=== PATIENT | female | born 2000 | race Caucasian/White ===

== ENCOUNTER 2019-01-11 14:25 | Emergency (ER) | payer OTHER ==
[2019-01-11 17:30] LABS: ADD UMIC YES; UR ASCORBIC ACID NEGATIVE (NEGATIVE); UR BILIRUBIN (Dip) NEGATIVE (NEGATIVE); UR BLOOD (Dip) 2+ mg/dL (NEGATIVE); UR CLARITY CLEAR (CLEAR); UR COLOR COLORLESS (YELLOW); UR GLUCOSE (Dip) NEGATIVE (NEGATIVE); UR KETONES (Dip) NEGATIVE (NEGATIVE); UR LEUKOCYTE ESTERASE (Dip) NEGATIVE Leu/ul (NEGATIVE); UR NITRITE (Dip) NEGATIVE (NEGATIVE); UR RBC 2 /HPF (0-5); UR SPECIFIC GRAVITY (Dip) 1.004 (1.003-1.030); UR SQUAMOUS EPITHELIAL CELL FEW /HPF (FEW); UR TOTAL PROTEIN (Dip) NEGATIVE (NEGATIVE); UR UROBILINOGEN (Dip) NEGATIVE (NEGATIVE); UR WBC 1 /HPF (0-5)
[2019-01-11] MEDS: CEFTRIAXONE 250 MG INJ IM (18:52)
[2019-01-11] MEDS: AZITHROMYCIN 500 MG TAB PO (18:52)
[2019-01-11] MEDS: LIDOCAINE 1% (MPF) 5 ML VIAL INFIL (18:52)
== END 2019-01-11 19:06 | disposition home or self-care (01) ==
LOC: FTE 14:25
DX: N76.0 Acute vaginitis (principal); J45.909 Unspecified asthma, uncomplicated; Z87.891 Personal history of nicotine dependence
CPT/HCPCS: 81001; 81025; 87210; 87591; 96372; 99284-25

== ENCOUNTER 2019-02-09 22:14 | Emergency (ER) | payer SELFPAY | END 2019-02-10 00:19 | disposition left against medical advice (07) | LOC: FTE 22:14 | DX: Z53.21 Procedure and treatment not carried out due to patient leaving prior to being seen by health care provider (principal) ==